=== PATIENT | male | born 1970 | race Caucasian/White ===

== ENCOUNTER 2018-04-08 16:00 | Outpatient (RCR) | payer OTHER | END 2018-06-15 | disposition home or self-care (01) | LOC: PT | DX: M54.42 Lumbago with sciatica, left side (principal); M54.41 Lumbago with sciatica, right side; G89.29 Other chronic pain ==

== ENCOUNTER 2024-06-09 15:56 | Emergency (ER) | payer OTHER ==
[~2024-06-09] VITALS: Ht 185 cm; Wt 97.7 kg
[2024-06-09] MEDS ORDERED: ATORVASTATIN CA10 MG PO (16:10)
[2024-06-09] MEDS ORDERED: LISINOPRIL20 MG PO (16:10)
[2024-06-09] MEDS ORDERED: NEURONTIN300 MG/CAP (16:10)
[2024-06-09] MEDS ORDERED: NS 1,000 ML IV ONE (16:15)
[2024-06-09 16:32] LABS: BASO # 0.03 K/mm3 (0.02-0.10); EOS # 0.18 K/mm3 (0.04-0.40); EOS % 2.3 % (0.0-4.0); HEMATOCRIT 44.6 % (42.0-52.0); HEMOGLOBIN 14.4 g/dL (13.5-18.0); LYMPH# 2.08 K/mm3 (1.50-4.00); MEAN CELL VOLUME 89 fl (78-100); MEAN CORPUSCULAR HEMOGLOBIN 29 pg (27-31); MEAN CORPUSCULAR HGB CONC 32 g/dL (33-37); MEAN PLATELET VOLUME 9.5 fl (7.4-10.4); MONO # 0.59 K/mm3 (0.20-0.80); NEU # 4.81 K/mm3 (1.40-6.50); PLATELET COUNT 254 K/mm3 (130-400); RED BLOOD COUNT 5.02 M/mm3 (4.20-5.60); RED CELL DISTRIBUTION WIDTH 12.1 % (11.5-14.5); WHITE BLOOD COUNT 7.7 K/mm3 (4.8-10.8)
[2024-06-09 16:42] LABS: ALBUMIN 3.9 g/dL (3.5-5.0)
[2024-06-09 16:43] LABS: CALCIUM 8.9 mg/dL (8.3-10.5)
[2024-06-09 16:45] LABS: TOTAL PROTEIN 6.8 g/dL (6.4-8.3)
[2024-06-09] MEDS ORDERED: Albuterol/Ipratropium 3 MG-0.5 MG/3 ML Neb Soln IH ONE (16:45)
[2024-06-09 16:46] LABS: TOTAL BILIRUBIN 0.6 mg/dL (0.2-1.2)
[2024-06-09] MEDS ORDERED: PREDNISONE20 MG PO (17:47)
[2024-06-09] MEDS ORDERED: ZITHROMAX Z PA250 MG PO (17:47)
[2024-06-09] MEDS ORDERED: PROAIR HFA0.09 MG/AC IH (17:48)
[2024-06-09 17:57] LABS: URINE APPEARANCE CLEAR (CLEAR); URINE BILIRUBIN NEGATIVE (NEGATIVE); URINE BLOOD NEGATIVE (NEGATIVE); URINE COLOR YELLOW (YELLOW); URINE GLUCOSE NEGATIVE (NEGATIVE); URINE KETONE NEGATIVE (NEGATIVE); URINE LEUKOCYTE ESTERASE NEGATIVE (NEGATIVE); URINE NITRATE NEGATIVE (NEGATIVE); URINE PROTEIN(semi-quant) NEGATIVE (NEGATIVE); URINE WBC 0-1 /hpf (0-3)
[2024-06-09 18:05] VITALS: BP 133/87
== END 2024-06-09 18:05 | disposition home or self-care (01) ==
LOC: ED 15:56
PROVIDERS: Family Medicine
DX: J18.9 Pneumonia, unspecified organism (principal)
CPT/HCPCS: J7030